=== PATIENT | male | born 1930 | race Caucasian/White ===

== ENCOUNTER 2016-11-18 16:14 | Emergency (ER) | payer OTHER, BC ==
[~2016-11-18] VITALS: Ht 175.3 cm; Wt 65.8 kg
[~2016-11-18 16:14] MED LIST: AMIODARONE HCL200 MG PO; CALCIUM + D3 PO; COLACE100 MG PO; COUMADIN5 MG PO; D3-50001 TAB PO; FLO4 PO; GLUCOTROL5 MG PO; KLOR-CON M2020 MEQ PO; LASIX40 MG PO; LEVOTHYROXIN0.125 M2 PO; LEVOXYL0.112 MG PO; LIPITOR40 MG PO; LOPRESSOR50 MG PO; LOTENSIN10 MG PO; METANX PO; MIRALAX17 GM/Dose PO; NEU300 PO; PROSCAR5 MG PO; PROTONIX40 MG PO; ROC25 PO; TRAVATAN Z5 ML OU; TRE400 PO; VERAPAMIL HCL240 MG PO; VITAMIN C500 M4 PO; VITAMIN D2000 I3 PO; WARFARIN SODIUM5 MG PO
[2016-11-18 17:16] LABS: CALCIUM 7.8 mg/dL (8.5-10.1); CARBON DIOXIDE 34.9 mmol/L (21-32); CHLORIDE SERUM 107 mmol/L (98-107); CREATININE SERUM 1.9 mg/dL (0.7-1.3); GLUCOSE SERUM 63 mg/dL (74-106); POTASSIUM SERUM 3.3 mmol/L (3.5-5.1); SODIUM SERUM 145 mmol/L (136-145)
[2016-11-18 17:19] LABS: BASOPHIL % 0.3 % (0-2); PLATELET COUNT 204 x10^3mcL (130-400)
[2016-11-18 17:28] LABS: ALBUMIN 2.3 g/dL (3.4-5.0); ALKALINE PHOSPHATASE 174 U/L (46-116); ALT/SGPT 32 U/L (16-63); AST/SGOT 29 U/L (15-37); BILIRUBIN TOTAL 0.9 mg/dL (0.20-1.00); CHOLESTEROL 87 mg/dL (<200); HDL CHOLESTEROL 61 mg/dL (40-60); PHOSPHOROUS 3.6 mg/dL (2.5-4.9); URIC ACID 8.2 mg/dL (3.5-7.2)
[2016-11-18 18:49] VITALS: BP 115/53
== END 2016-11-18 19:22 | disposition home or self-care (01) ==
LOC: ED 16:14
PROVIDERS: Emergency Medicine
DX: K29.00 Acute gastritis without bleeding (principal); I10 Essential (primary) hypertension; I48.91 Unspecified atrial fibrillation; E11.9 Type 2 diabetes mellitus without complications; Z88.8 Allergy status to other drugs, medicaments and biological substances; Z79.899 Other long term (current) drug therapy
CPT/HCPCS: 82962; 83880; J2405; Q0092

== ENCOUNTER → 2016-12-17 | Outpatient (CLI) | payer OTHER, BC | END | disposition home or self-care (01) | LOC: CT 13:02 | PROC: BW211ZZ Computerized Tomography (CT Scan) of Abdomen and Pelvis using Low Osmolar Contrast (ICD-10-PCS; principal; 2016-12-17) | DX: R63.4 Abnormal weight loss (principal) ==

== ENCOUNTER 2017-01-03 08:09 | Day surgery (SDC) | payer OTHER, BC ==
[~2017-01-03] VITALS: Ht 175.3 cm; Wt 65.3 kg
[2017-01-03 08:55] VITALS: BP 125/67
[2017-01-03 12:17] VITALS: BP 96/50
== END 2017-01-03 11:50 | disposition home or self-care (01) ==
LOC: GI 08:09 → OR 09:00 → GI 09:00
PROVIDERS: Internal Medicine Gastroenterology
PROC: 0DB68ZX Excision of Stomach, Via Natural or Artificial Opening Endoscopic, Diagnostic (ICD-10-PCS; principal; 2017-01-03 08:30)
DX: K29.70 Gastritis, unspecified, without bleeding (principal); K31.89 Other diseases of stomach and duodenum; K29.80 Duodenitis without bleeding; E11.9 Type 2 diabetes mellitus without complications; I48.2 Chronic atrial fibrillation; Z79.01 Long term (current) use of anticoagulants; Z68.21 Body mass index [BMI] 21.0-21.9, adult
CPT/HCPCS: 43235; J1200; J1610; J2250; J2310; J3010; J3490